=== PATIENT | male | born 1960 | race Hispanic/Latino ===

== ENCOUNTER 2022-02-25 22:54 | Emergency (ER) | payer SELFPAY ==
[2022-02-26] MEDS ORDERED: lisinopriL 20 MG TAB ONE (00:27)
[2022-02-26 00:51] LABS: Urine Blood Negative (Negative); Urine Glucose Negative (Negative); Urine Protein Negative (Negative); Urine Specific Gravity 1.025 (1.005-1.030); Urine pH 6.5 (5.0-7.0)
[2022-02-26 00:51] LABS: Absolute Lymphocytes (CBC) 2.3 K/uL (0.7-4.9); Hematocrit 40.2 % (39.6-49.0); Lymphocytes % 30.1 % (15.3-44.8); MPV 8.7 fL (7.6-11.3); RBC Red Blood Cell Count 4.44 M/uL (4.33-5.43)
[2022-02-26] MEDS ORDERED: MORPHINE 4 MG/ML SYR ONE (01:59)
[2022-02-26] MEDS ORDERED: ONDANSETRON 4 MG/2 ML VIAL ONE (01:59)
--- NOTE | 2022-02-26 05:47 | ER ---
Nurse's Notes [facility] Name: Gilbert Poole Age: 61 yrs Sex: Male : 1960 Arrival Date: 02/25/2022 Time: 22:58 Bed 11 Private MD: Diagnosis: Low back pain;Hypertensive heart disease without heart failure Presentation: 02/25 23:13 Chief complaint: Patient states: "When I am working I am fine, but once I get home the tw5 pain in my back is terrible.". Coronavirus screen: Vaccine status: Patient reports being unvaccinated. Ebola Screen: Patient negative for fever greater than or equal to 101.5 degrees Fahrenheit, and additional compatible Ebola Virus Disease symptoms Patient denies exposure to infectious person. Patient denies travel to an Ebola-affected area in the 21 days before illness onset. Initial Sepsis Screen: Does the patient meet any 2 criteria? No. Patient's initial sepsis screen is negative. Does the patient have a suspected source of infection? No. Patient's initial sepsis screen is negative. Risk Assessment: Do you want to hurt yourself or someone else? Patient reports no desire to harm self or others. Onset of symptoms was February 20, 2022. 23:13 Acuity: KALLIE 4 tw5 23:13 Method Of Arrival: Ambulatory 5 Triage Assessment: 23:16 General: Appears uncomfortable, Behavior is calm, cooperative, appropriate for age. tw5 Pain: Pain currently is 10 out of 10 on a pain scale. Musculoskeletal: Range of motion: intact in all extremities. Historical: - Allergies: 23:16 No Known Allergies; tw5 - Home Meds: 23:16 None [Active]; tw5 - PSHx: 23:16 back sugery- 1988; tw5 - Immunization history:: Flu vaccine is not up to date. Patient has never been vaccinated. - Social history:: Smoking status: Patient reports the use of cigarette tobacco products, smokes one-half pack cigarettes per day. Screenin/24 01:42 Abuse screen: Denies threats or abuse. Denies injuries from another. Nutritional lp1 screening: No deficits noted. Tuberculosis screening: No symptoms or risk factors identified. Fall Risk None identified. Assessment: 01:41 General: Appears uncomfortable, Behavior is appropriate for age. Pain: Complains of lp1 pain in left mid back Pain currently is 8 out of 10 on a pain scale. Quality of pain is described as sharp. Neuro: Level of Consciousness is awake, alert, obeys commands, Gait is steady. Cardiovascular: Patient's skin is warm and dry. Respiratory: Respiratory effort is even, unlabored. GI: No signs and/or symptoms were reported involving the gastrointestinal system. : Denies burning with urination, discharge, urinary frequency. EENT: No signs and/or symptoms were reported regarding the EENT system. Derm: Skin is intact, Skin is dry, Skin is normal. Musculoskeletal: No deficits noted. 02:01 Reassessment: Verbal order from Dr. Samano for Morphine 4mg IV, Zofran 4mg IV now. lp1 02:14 Reassessment: Patient returned from CT. lp1 02:55 Reassessment: Patient reports some relief with partial administration of Morphine, lp1 requesting 2nd half, given now. 05:00 Reassessment: Patient reports pain returning to left mid back at this time time. lp1 05:55 Reassessment: Dr. Samano at bedside to discuss results with patient and ; lp1 Demonstrate understanding. Vital Signs: 02/25 23:13 BP 175 / 101; Pulse 78; Resp 18; Temp 98.5(O); Pulse Ox 97% on R/A; Weight 108.86 kg; tw5 Height 6 ft. 0 in. (182.88 cm); Pain 10/10; 02/26 01:41 BP 202 / 107; Pulse 68; Resp 18; Pulse Ox 99% on R/A; Pain 8/10; lp1 02:22 BP 174 / 95; Pulse 66; Resp 18; Pulse Ox 98% on R/A; lp1 02:54 BP 175 / 95; Pulse 59; Resp 18; Pulse Ox 99% on R/A; lp1 06:00 BP 176 / 97; Pulse 59; Resp 18; Pulse Ox 95% on R/A; lp1 02/25 23:13 Body Mass Index 32.55 (108.86 kg, 182.88 cm) tw5 ED Course: 02/25 22:58 Patient arrived in ED. ag3 23:16 Triage completed. tw5 23:16 Arm band placed on right wrist. tw5 23:42 Brent Samano MD is Attending Physician. kdr 02/26 00:26 Missed attempt(s): 20 gauge in right antecubital area. Bleeding controlled, band aid mw2 applied, catheter tip intact. 00:28 Inserted saline lock: 20 gauge in left antecubital area, using aseptic technique. Blood mw2 collected. 00:31 Chem 7 Sent. mw2 00:31 CBC with Diff Sent. mw2 01:41 Micheline Rhodes, RN is Primary Nurse. lp1 01:42 Patient has correct armband on for positive identification. lp1 02:21 CT Aorta for Dissection In Process Unspecified. EDMS 06:00 No provider procedures requiring assistance completed. IV discontinued, No lp1 redness/swelling at site. Pressure dressing applied. Administered Medications: 00:42 Drug: Lisinopril 20 mg Route: PO; tw5 02:22 Follow up: Response: No adverse reaction lp1 02:14 Drug: Zofran (Ondansetron) 4 mg Route: IVP; Site: left antecubital; lp1 03:00 Follow up: Response: No adverse reaction lp1 02:16 Drug: morphine 2 mg Route: IVP; Site: left antecubital; lp1 02:48 Drug: morphine 2 mg {Note: RASS 0.} Route: IVP; Site: left antecubital; lp1 03:30 Follow up: Response: No adverse reaction lp1 05:58 Drug: Robaxin (methocarbamol) 750 mg Route: PO; lp1 06:06 Follow up: Response: Medication administered at discharge. lp1 06:05 Drug: [place] (HYDROcodone-acetaminophen) 10 mg-325 mg 1 tabs Route: PO; lp1 06:06 Follow up: Response: Medication administered at discharge. lp1 Medication: 01:42 VIS not applicable for this client. lp1 Outcome: 05:46 Discharge ordered by . kdr 06:09 Discharged to home ambulatory, with significant other. lp1 06:09 Condition: good 06:09 Discharge instructions given to patient, Instructed on discharge instructions, follow up and referral plans. medication usage, Demonstrated understanding of instructions, follow-up care, medications, Prescriptions given X 3. 06:09 Patient left the ED. lp1 Signatures: Dispatcher [employer] EDTX Brent Samano MD MD kdr Pena, Laura, TARUN RN lp1 Fariha Sterling mw2 Marlin Youngblood ag3 Mariposa Givens tw5
--- NOTE | 2022-02-26 05:47 | EDPHYS ---
Physician Documentation [facility] Name: Gilbert Poole Age: 61 yrs Sex: Male : 1960 Arrival Date: 02/25/2022 Time: 22:58 Bed 11 Private MD: ED Physician Brent Samano HPI: 02/26 20:43 This 61 yrs old Male presents to ER via Ambulatory with complaints of Back kdr Pain. 20:43 The patient presents with pain that is acute, with no known mechanism of injury. The kdr symptoms are located in the left mid back. Onset: The symptoms/episode began/occurred Is been ongoing and intermittent for some period of time more than a week.. The pain does not radiate. Associated signs and symptoms: The patient has no apparent associated signs or symptoms. The problem was sustained from unknown cause. The problem was sustained Patient is noted to be very hypertensive and certainly a concern on his differential would be aortic dissection. Modifying factors: The patient symptoms are alleviated by Patient states that his back pain is worse when he is still and at rest. When he gets up and goes to work during the day, and keeps active, his pain is much improved. Severity of symptoms: At their worst the symptoms were moderate, severe, just prior to arrival, in the emergency department the symptoms are unchanged. The patient has not experienced similar symptoms in the past. The patient has not recently seen a physician. Historical: - Allergies: 02/25 23:16 No Known Allergies; tw5 - Home Meds: 23:16 None [Active]; tw5 - PSHx: 23:16 back 1988; tw5 - Immunization history:: Flu vaccine is not up to date. Patient has never been vaccinated. - Social history:: Smoking status: Patient reports the use of cigarette tobacco products, smokes one-half pack cigarettes per day. ROS: 02/26 20:43 Constitutional: Negative for fever, chills, and weight loss, Eyes: Negative for injury, kdr pain, redness, and discharge, ENT: Negative for injury, pain, and discharge, Neck: Negative for injury, pain, and swelling, Cardiovascular: Negative for chest pain, palpitations, and edema, Respiratory: Negative for shortness of breath, cough, wheezing, and pleuritic chest pain, Abdomen/GI: Negative for abdominal pain, nausea, vomiting, diarrhea, and constipation, : Negative for injury, bleeding, discharge, and swelling, MS/Extremity: Negative for injury and deformity, Skin: Negative for injury, rash, and discoloration, Neuro: Negative for headache, weakness, numbness, tingling, and seizure activity. Psych: Negative for depression, anxiety, suicide ideation, homicidal ideation, and hallucinations, Allergy/Immunology: Negative for hives, rash, and allergies, Endocrine: Negative for neck swelling, polydipsia, polyuria, polyphagia, and marked weight changes, Hematologic/Lymphatic: Negative for swollen nodes, abnormal bleeding, and unusual bruising. Back: Positive for pain at rest, of the left mid back. Exam: 20:43 Constitutional: This is a well developed, well nourished patient who is awake, alert, kdr and in no acute distress. Head/Face: Normocephalic, atraumatic. Eyes: Pupils equal round and reactive to light, extra-ocular motions intact. Lids and lashes normal. Conjunctiva and sclera are non-icteric and not injected. Cornea within normal limits. Periorbital areas with no swelling, redness, or edema. Neck: Trachea midline, no thyromegaly or masses palpated, and no cervical lymphadenopathy. Supple, full range of motion without nuchal rigidity, or vertebral point tenderness. No Meningismus. Chest/axilla: Normal chest wall appearance and motion. Nontender with no deformity. No lesions are appreciated. Cardiovascular: Regular rate and rhythm with a normal S1 and S2. No gallops, murmurs, or rubs. Normal PMI, no JVD. No pulse deficits. Respiratory: Lungs have equal breath sounds bilaterally, clear to auscultation and percussion. No rales, rhonchi or wheezes noted. No increased work of breathing, no retractions or nasal flaring. Abdomen/GI: Soft, non-tender, with normal bowel sounds. No distension or tympany. No guarding or rebound. No evidence of tenderness throughout. Skin: Warm, dry with normal turgor. Normal color with no rashes, no lesions, and no evidence of cellulitis. MS/ Extremity: Pulses equal, no cyanosis. Neurovascular intact. Full, normal range of motion. Neuro: Awake and alert, GCS 15, oriented to person, place, time, and situation. Cranial nerves II-XII grossly intact. Motor strength 5/5 in all extremities. Sensory grossly intact. Cerebellar exam normal. Normal gait. Psych: Awake, alert, with orientation to person, place and time. Behavior, mood, and affect are within normal limits. 20:43 Back: pain, that is moderate, of the left mid back, ROM is normal, normal spinal alignment noted, CVA tenderness, is absent, vertebral tenderness, is not appreciated, muscle spasm, is appreciated in the left mid back. Vital Signs: 02/25 23:13 BP 175 / 101; Pulse 78; Resp 18; Temp 98.5(O); Pulse Ox 97% on R/A; Weight 108.86 kg; tw5 Height 6 ft. 0 in. (182.88 cm); Pain 10/10; 02/26 01:41 BP 202 / 107; Pulse 68; Resp 18; Pulse Ox 99% on R/A; Pain 8/10; lp1 02:22 BP 174 / 95; Pulse 66; Resp 18; Pulse Ox 98% on R/A; lp1 02:54 BP 175 / 95; Pulse 59; Resp 18; Pulse Ox 99% on R/A; lp1 06:00 BP 176 / 97; Pulse 59; Resp 18; Pulse Ox 95% on R/A; lp1 02/25 23:13 Body Mass Index 32.55 (108.86 kg, 182.88 cm) tw5 MDM: 05:46 Patient medically screened. kdr 20:43 Data reviewed: vital signs, nurses notes, lab test result(s), radiologic studies. kdr Counseling: I had a detailed discussion with the patient and/or guardian regarding: the historical points, exam findings, and any diagnostic results supporting the discharge/admit diagnosis, lab results, radiology results, the need for outpatient follow up. ED course: Patient's discomfort was significantly improved by the interventions given in the ED. He did not achieve complete resolution of his symptoms. He was stable in the ED and was discharged in good condition. He was happy with the care provider and the plan for discharge and follow-up. 02/25 23:52 Order name: CBC with Diff; Complete Time: 05: kdr 02/25 23:52 Order name: Chem 7; Complete Time: : kdr 02/25 23:52 Order name: CT Aorta for Dissection kdr 02/26 00:51 Order name: Urine Dipstick-Ancillary; Complete Time: 05:43 [facility] 02/25 23:52 Order name: Urine Dipstick-Ancillary (obtain specimen); Complete Time: 01:30 kdr Administered Medications: 00:42 Drug: Lisinopril 20 mg Route: PO; tw5 02:22 Follow up: Response: No adverse reaction lp1 02:14 Drug: Zofran (Ondansetron) 4 mg Route: IVP; Site: left antecubital; lp1 03:00 Follow up: Response: No adverse reaction lp1 02:16 Drug: morphine 2 mg Route: IVP; Site: left antecubital; lp1 02:48 Drug: morphine 2 mg {Note: RASS 0.} Route: IVP; Site: left antecubital; lp1 03:30 Follow up: Response: No adverse reaction lp1 05:58 Drug: Robaxin (methocarbamol) 750 mg Route: PO; lp1 06:06 Follow up: Response: Medication administered at discharge. lp1 06:05 Drug: [place] (HYDROcodone-acetaminophen) 10 mg-325 mg 1 tabs Route: PO; lp1 06:06 Follow up: Response: Medication administered at discharge. lp1 Disposition Summary: 02/26/22 05:46 Discharge Ordered Location: Home kdr Problem: new kdr Symptoms: have improved kdr Condition: Stable kdr Diagnosis - Low back pain kdr - Hypertensive heart disease without heart failure kdr Followup: kdr - With: Private Physician - When: 2 - 3 days - Reason: If symptoms return, Further diagnostic work-up, Recheck today's complaints, Continuance of care, Re-evaluation by your physician Discharge Instructions: - Discharge Summary Sheet kdr - Acute Back Pain, Adult kdr - Hypertension, Adult, [id number] kdr Forms: - Medication Reconciliation Form kdr - Thank You Letter kdr Prescriptions: - methocarbamol 750 mg Oral tablet - take 2 tablet by ORAL route 3 times per day As needed; 24 tablet; Refills: 0, kdr Product Selection Permitted - Lisinopril 20 mg Oral Tablet - take 1 tablet by ORAL route once daily; 20 tablet; Refills: 0, Product kdr Selection Permitted - Tramadol 50 mg Oral Tablet - take 1 tablet by ORAL route every 8 hours as needed; 12 tablet; Refills: 0, kdr Product Selection Permitted Signatures: Dispatcher [employer] Brent Madden MD MD kdr Micheline Rhodes RN RN lp1 Mariposa Givens tw5
[2022-02-26] MEDS ORDERED: methocarbamoL 500 MG TAB ONE ×2 (05:53→05:55)
[2022-02-26] MEDS ORDERED: HYDROCODONE/APAP 10/325 TAB ONE (06:04)
[2022-02-26 06:28] VITALS: TEMP 98.5
[2022-02-26 06:35] VITALS: BP 176/97; O2SAT 95
--- NOTE | 2022-02-26 13:46 | RAD REPORT ---
EXAM DESCRIPTION: CT - Angio Aorta For Dissection - 02/26/2022 5:49 am CLINICAL HISTORY: 61 years Male Left flank pain and HTN COMPARISON: None TECHNIQUE: CT angiography of the chest, abdomen and pelvis was performed with axial dataset after pasquale sunitha injection of intravenous contrast. Multiplanar reformation, 3D and MIP reconstructions were perfo rmed. This exam was performed according to our departmental dose-optimization program, which includes automated exposure control, adjustment of the mA and/or kV according to patient size and/or use of i terative reconstruction technique. FINDINGS: Chest: Aorta: No evidence of aortic dissection or aneurysm. Pulmonary arteries: No evidence of pulmonary embolism. Mediastinum: Unremarkable. No adenopathy. Heart: Heart is normal in size. No pericardial effusion. Lungs / airways: No consolidation. Airways are patent. Pleura: No significant pleural effusion. No pneumothorax. Osseous: Multilevel degenerative changes. Soft tissues: Unremarkable. Abdomen and pelvis: Liver: No focal lesions. Gallbladder: Cholelithiasis without gallbladder wall thickening. Pancreas: Within normal limits. Spleen: Within normal limits. Kidneys: A 6 mm nonobstructing stone in the left kidney. There are two 1 mm nonobstructing stones in the right kidney. Bilateral renal cysts, the largest on the left measuring 1.5 x 1.5 cm. Adrenal glands: Within normal limits. Vasculature: No aortic aneurysm or dissection. Bowel: No bowel distention. Appendix: Within normal limits. Peritoneum: No free fluid or free air. Lymph Nodes: No lymphadenopathy. Reproductive: Prostate is enlarged. Urinary bladder: Unremarkable. Osseous structures: Multilevel degenerative changes with severe spinal canal stenosis at L4-L5. Grade 1 degenerative anterolisthesis of L4. Soft tissues: Small left greater than right bilateral fat-containing inguinal hernias. IMPRESSION: 1. No aortic dissection. 2. A 6 mm nonobstructing stone in the left kidney and two 1 mm nonobstructing stones in the right kid marilin. 3. Cholelithiasis without gallbladder wall thickening. 4. Additional chronic findings as above. Electronically signed by: Jacob Arora MD 02/26/2022 3:53 AM CDT Due to temporary technical issues with the PACS/Fluency reporting system, reports are being signed by the in house radiologists without review as a courtesy to insure prompt reporting. The interpreting radiologist is fully responsible for the content of the report.
== END 2022-02-26 06:09 | disposition home or self-care (01) ==
LOC: ER 22:54
DX: M54.50 Low back pain, unspecified (principal); I11.9 Hypertensive heart disease without heart failure; F17.210 Nicotine dependence, cigarettes, uncomplicated
CPT/HCPCS: 36415; 71275; 74175; 80048; 81003; 85025; 96374; 96375; 99284; J2405; Q9967